=== PATIENT | female | born 1945 | race Two or more races ===

== ENCOUNTER 2016-10-10 23:46 | Emergency (ER) | payer MEDICAID ==
[~2016-10-10] VITALS: Ht 152.4 cm; Wt 61.2 kg
[2016-10-11] MEDS ORDERED: FAMOTIDINE (10MG/ML) 2ML VL IV ONE (00:15)
[2016-10-11] MEDS ORDERED: diphenhdrAMINE HCL 50 MG/1 ML VL IV ONE (00:15)
[2016-10-11] MEDS ORDERED: methylPREDNISolone SOD SUCC 125 MG/2 ML VL IV ONE (00:15)
[2016-10-11 02:46] VITALS: BP 150/77
== END 2016-10-11 04:14 | disposition home or self-care (01) ==
LOC: ER 23:48
DX: T78.3XXA Angioneurotic edema, initial encounter (principal); I10 Essential (primary) hypertension; Y93.89 Activity, other specified; Y99.8 Other external cause status; Y92.89 Other specified places as the place of occurrence of the external cause
CPT/HCPCS: 96374; 96375; 99284; J1200; J2930; J3490

== ENCOUNTER 2016-12-20 09:36 | Inpatient (IN) | payer MEDICAID ==
[2016-12-20] VITALS (9 sets, daily range): BP systolic 102–182; BP diastolic 57–100
[~2016-12-20] VITALS: Ht 154.9 cm; Wt 65.6 kg
[2016-12-20] MEDS ORDERED: SUCCINYLCHOLINE CHLORIDE 20 MG/ML 10ML VIAL IV ONE ×2 (09:39→11:00)
[2016-12-20] MEDS ORDERED: ETOMIDATE (2MG/ML) 20ML VIAL IV ONE ×2 (09:39→11:00)
[2016-12-20] MEDS ORDERED: MIDAZOLAM DRIP 50 mg/50mL 50 ML IV ONE ×3 (09:41→16:56)
[2016-12-20] MEDS ORDERED: SODIUM CHLORIDE 0.9% 1,000 ML IV ONE (09:50)
[2016-12-20] MEDS: MIDAZOLAM DRIP 50 mg/50mL 50 ML IV SCH (09:50)
[2016-12-20] MEDS ORDERED: diphenhdrAMINE HCL 50 MG/1 ML VL IV ONE (10:00)
[2016-12-20] MEDS ORDERED: methylPREDNISolone SOD SUCC 125 MG/2 ML VL IV ONE (10:00)
[2016-12-20] MEDS ORDERED: EPINEPHrine HCL 1 MG/1 ML AMP SC ONE (10:00)
[2016-12-20 10:57] LABS: Urine Bilirubin Negative (Negative); Urine Blood 2+ /uL (Negative); Urine Color Yellow (Yellow); Urine Glucose TRACE mg/dL (Normal); Urine Hyaline Cast FEW /lpf (0 - 2); Urine Ketone Negative (Negative); Urine Mucus FEW (None Seen); Urine Nitrite Negative (Negative); Urine RBC 7 /hpf (0 - 4); Urine Squamous Epithelial Cell FEW /hpf (<5); Urine Urobilinogen Normal (Negative)
[2016-12-20 11:11] LABS: Basophils # (auto) 0.1 uL; Basophils % (auto) 1.1 % (0.0-2.0); Eosinophils # (auto) 0.2 uL; Eosinophils % (auto) 2.9 % (0.0-7.0); Hematocrit 45.2 % (36.0-46.0); Hemoglobin 15.4 g/dL (12.2-16.2); INR 0.95 (0.9-1.15); Lymphocytes # (auto) 2.1 uL; Lymphocytes % (auto) 30.8 % (10.0-50.0); Mean Corpuscular Hemoglobin 30.4 pg (28.0-32.0); Mean Corpuscular Volume 89.6 fL (80.0-100.0); Mean Platelet Volume 7.4 fL (6.9-10.8); Monocytes # (auto) 0.4 uL; Monocytes % (auto) 5.9 % (0.0-12.0); Neutrophils # (auto) 4.1 uL; Neutrophils % (auto) 59.3 % (37.0-80.0); Nucleated Red Blood Cells % 0.1 %; Partial Thromboplastin Time 28.9 sec (22.64-33.71); Platelet Count (auto) 358 10^3/uL (140-450); Prothrombin Time 10.4 sec (9.37-12.3); Red Cell Distribution Width 13.8 % (11.8-14.3); White Blood Cell 6.9 10^3/uL (4.4-10.8)
[2016-12-20 11:11] LABS: Allen Test Yes; Base Excess -3.1 mmol/L (-2.0-2.0); Blood 02Sat 97.3 % (96-100); Blood COHb 0.5 % (0.5-1.5); Blood MetHb 0.3 % (0.0-1.5); HCO3 21.7 mmol/L (22-26.0); HHb 2.7 % (0.0-5.0); MODE VENT - A/C; O2Hb 96.5 % (94.0-97.0); PCO2 38.1 mmHg (35.0-45.0); PCO2(T) 38.1 mmHg (35.0-45.0); PO2 106.1 mmHg (80.0-100.0); PO2(T) 106.1 mmHg (80.0-100.0); Sample Type Arterial; pH 7.373 (7.350-7.450)
[2016-12-20] MEDS ORDERED: PROPOFOL 100 ML IV SCH (11:12)
[2016-12-20 11:17] LABS: Albumin 3.6 g/dL (3.4-5.0); Alkaline Phosphatase 120 U/L (45-117); Anion Gap 8 (5-15); Aspartate Aminotransferase 34 U/L (15-37); BUN/Creatinine Ratio 14.9; Bilirubin, Total 0.6 mg/dL (0.2-1.0); Blood Urea Nitrogen 10 mg/dL (7-18); Calcium 9.3 mg/dL (8.5-10.1); Carbon Dioxide 21 mmol/L (21-32); Chloride 104 mmol/L (98-107); GFR African American 112 mL/min; GFR Non-African American 93 mL/min; Glucose 206 mg/dL (74-106); Potassium 4.9 mmol/L (3.5-5.1); Sodium 133 mmol/L (136-145); Total Protein 8.7 g/dL (6.4-8.2)
[2016-12-20] MEDS ORDERED: DEXTROSE (50%) 50ML SYRG IV PRN (15:00)
[2016-12-20] MEDS ORDERED: MORPHINE SULF INJ 2 MG/ML SYRINGE 1ML IV PRN (15:00)
[2016-12-20] MEDS ORDERED: LABETALOL HCL 5 MG/ML 4ML SYRINGE IV PRN (15:00)
[2016-12-20] MEDS ORDERED: ONDANSETRON HCL 4 MG/2 ML VIAL IV PRN (15:00)
[2016-12-20] MEDS ORDERED: CYAN1TAB14 PO (15:11)
[2016-12-20] MEDS ORDERED: [UNRECOGNIZED DRUG - CODE] EX (15:11)
[2016-12-20] MEDS ORDERED: OMEGCAP28 OR (15:11)
[2016-12-20] MEDS ORDERED: GEMF600T3 PO (15:11)
[2016-12-20] MEDS ORDERED: METF-370 PO (15:11)
[2016-12-20] MEDS: PROPOFOL 100 ML IV SCH (15:13)
[2016-12-20] MEDS ORDERED: GEMFIBROZIL 600 MG TAB PO ONE (15:15)
[2016-12-20] MEDS ORDERED: methylPREDNISolone SOD SUCC 125 MG/2 ML VL IM ONE (15:15)
[2016-12-20] MEDS ORDERED: diphenhdrAMINE HCL 50 MG/1 ML VL IV PRN (15:30)
[2016-12-20] MEDS ORDERED: ENOXAPARIN SOD 40 MG/0.4 ML SYRINGE SC ONE (16:15)
[2016-12-20] MEDS: SODIUM CHLORIDE 0.9% 1,000 ML IV SCH (17:05)
[2016-12-20] MEDS: ACCU-CHEK COMFORT CURVE STRIP VI SCH ×2 (17:05→22:17)
[2016-12-20] MEDS: InsuLIN REG 1unit/0.01ml Soln (100units/ml) SC SCH ×2 (18:00→22:21)
[2016-12-20] MEDS: diphenhdrAMINE HCL 50 MG/1 ML VL IV SCH (18:00)
[2016-12-20] MEDS ORDERED: methylPREDNISolone SOD SUCC 125 MG/2 ML VL IV SCH (22:00)
[2016-12-20] MEDS: methylPREDNISolone SOD SUCC 125 MG/2 ML VL IV SCH (22:17)
[2016-12-20] MEDS: FAMOTIDINE (10MG/ML) 2ML VL IV SCH (22:17)
[2016-12-21] VITALS (87 sets, daily range): BP systolic 103–162; BP diastolic 52–82
[2016-12-21] MEDS: diphenhdrAMINE HCL 50 MG/1 ML VL IV SCH ×5 (00:07→23:58)
[2016-12-21] MEDS: SODIUM CHLORIDE 0.9% 1,000 ML IV SCH ×3 (02:33→15:23)
[2016-12-21] MEDS: PROPOFOL 100 ML IV SCH (03:10)
[2016-12-21 04:32] LABS: Basophils # (auto) 0 uL; Basophils % (auto) 0.4 % (0.0-2.0); Eosinophils # (auto) 0 uL; Eosinophils % (auto) 0.1 % (0.0-7.0); Hemoglobin 12.2 g/dL (12.2-16.2); Lymphocytes # (auto) 0.6 uL; Lymphocytes % (auto) 10.2 % (10.0-50.0); Mean Corpuscular Hemoglobin 29.9 pg (28.0-32.0); Mean Corpuscular Hgb Conc. 33.8 g/dL (32.0-36.0); Mean Corpuscular Volume 88.5 fL (80.0-100.0); Mean Platelet Volume 6.9 fL (6.9-10.8); Monocytes # (auto) 0.1 uL; Monocytes % (auto) 1.6 % (0.0-12.0); Neutrophils # (auto) 5.4 uL; Neutrophils % (auto) 87.7 % (37.0-80.0); Platelet Count (auto) 265 10^3/uL (140-450); White Blood Cell 6.2 10^3/uL (4.4-10.8)
[2016-12-21] MEDS: MIDAZOLAM DRIP 50 mg/50mL 50 ML IV SCH ×3 (04:35→19:45)
[2016-12-21 04:53] LABS: BUN/Creatinine Ratio 28.6; Calcium 8.5 mg/dL (8.5-10.1); Potassium 3.9 mmol/L (3.5-5.1)
[2016-12-21] MEDS: methylPREDNISolone SOD SUCC 125 MG/2 ML VL IV SCH ×2 (06:15→11:54)
[2016-12-21] MEDS: ACCU-CHEK COMFORT CURVE STRIP VI SCH ×4 (06:35→21:56)
[2016-12-21] MEDS: InsuLIN REG 1unit/0.01ml Soln (100units/ml) SC SCH ×4 (06:35→21:56)
[2016-12-21 07:41] LABS: Allen Test Yes; Base Excess -3.5 mmol/L (-2.0-2.0); Blood COHb 0.7 % (0.5-1.5); Blood MetHb 0.1 % (0.0-1.5); HCO3 19.7 mmol/L (22-26.0); MODE VENT - A/C; O2Hb 93.2 % (94.0-97.0); PCO2 30.2 mmHg (35.0-45.0); PCO2(T) 30.2 mmHg (35.0-45.0); PO2 70.5 mmHg (80.0-100.0); PO2(T) 70.5 mmHg (80.0-100.0); Sample Type Arterial; pH 7.432 (7.350-7.450)
[2016-12-21] MEDS ORDERED: ENOXAPARIN SOD 40 MG/0.4 ML SYRINGE SC SCH (10:00)
[2016-12-21] MEDS ORDERED: GEMFIBROZIL 600 MG TAB PO SCH (10:00)
[2016-12-21] MEDS: FAMOTIDINE (10MG/ML) 2ML VL IV SCH ×2 (10:42→21:56)
[2016-12-21] MEDS ORDERED: FUROSEMIDE 20 MG/2 ML VIAL IV ONE (15:00)
[2016-12-21] MEDS: methylPREDNISolone SOD SUCC 40 MG/ML VL IV SCH (21:56)
[2016-12-21] MEDS ORDERED: methylPREDNISolone SOD SUCC 125 MG/2 ML VL IV SCH (22:00)
[2016-12-22] VITALS (82 sets, daily range): BP systolic 126–177; BP diastolic 55–98
[2016-12-22] MEDS: PROPOFOL 100 ML IV SCH (02:00)
[2016-12-22 03:53] LABS: Basophils # (auto) 0 uL; Eosinophils # (auto) 0 uL; Hematocrit 34.9 % (36.0-46.0); Lymphocytes # (auto) 0.6 uL; Lymphocytes % (auto) 6.8 % (10.0-50.0); Mean Corpuscular Hemoglobin 30.4 pg (28.0-32.0); Mean Corpuscular Hgb Conc. 34.4 g/dL (32.0-36.0); Mean Corpuscular Volume 88.5 fL (80.0-100.0); Monocytes # (auto) 0.3 uL; Monocytes % (auto) 3.3 % (0.0-12.0); Neutrophils # (auto) 8.1 uL; Neutrophils % (auto) 89.9 % (37.0-80.0); Platelet Count (auto) 268 10^3/uL (140-450); Red Cell Distribution Width 13.9 % (11.8-14.3)
[2016-12-22 04:01] LABS: BUN/Creatinine Ratio 35.7; Calcium 8.3 mg/dL (8.5-10.1)
[2016-12-22] MEDS: SODIUM CHLORIDE 0.9% 1,000 ML IV SCH ×2 (05:35→18:55)
[2016-12-22] MEDS: methylPREDNISolone SOD SUCC 40 MG/ML VL IV SCH ×2 (06:10→22:11)
[2016-12-22] MEDS: diphenhdrAMINE HCL 50 MG/1 ML VL IV SCH ×3 (06:10→17:56)
[2016-12-22] MEDS: InsuLIN REG 1unit/0.01ml Soln (100units/ml) SC SCH ×4 (06:11→22:19)
[2016-12-22] MEDS: ACCU-CHEK COMFORT CURVE STRIP VI SCH ×4 (06:11→22:11)
[2016-12-22 07:32] LABS: Allen Test Yes; Blood 02Sat 94.5 % (96-100); Blood COHb 0.3 % (0.5-1.5); Blood MetHb 0.2 % (0.0-1.5); HCO3 21.9 mmol/L (22-26.0); HHb 5.5 % (0.0-5.0); MODE VENT - A/C; PCO2 31.2 mmHg (35.0-45.0); PCO2(T) 31.2 mmHg (35.0-45.0); PO2 74.1 mmHg (80.0-100.0); PO2(T) 74.1 mmHg (80.0-100.0); Sample Type Arterial; pH 7.464 (7.350-7.450)
[2016-12-22 09:07] LABS: Allen Test Yes; Base Excess -0.4 mmol/L (-2.0-2.0); Blood 02Sat 93.4 % (96-100); Blood COHb 0.6 % (0.5-1.5); Blood MetHb 0.2 % (0.0-1.5); HCO3 21.8 mmol/L (22-26.0); HHb 6.5 % (0.0-5.0); MODE VENT - CPAP; O2Hb 92.7 % (94.0-97.0); PCO2 29.1 mmHg (35.0-45.0); PCO2(T) 29.1 mmHg (35.0-45.0); PO2 67.5 mmHg (80.0-100.0); PO2(T) 67.5 mmHg (80.0-100.0); Pressure Support 8; Sample Type Arterial; pH 7.493 (7.350-7.450)
[2016-12-22] MEDS: POTASSIUM CHL 10% (20 MEQ/15ML) 15ml ORAL SOLN GT SCH (09:59)
[2016-12-22] MEDS: FAMOTIDINE (10MG/ML) 2ML VL IV SCH ×2 (09:59→22:10)
[2016-12-22] MEDS ORDERED: FUROSEMIDE 40 MG/4 ML VIAL ONE (11:25)
[2016-12-22] MEDS ORDERED: POTASSIUM CHL 10% (20 MEQ/15ML) 15ml ORAL SOLN GT ONE (11:30)
[2016-12-22] MEDS ORDERED: FUROSEMIDE 40 MG/4 ML VIAL IV ONE (11:30)
[2016-12-22] MEDS ORDERED: LABETALOL HCL 5 MG/ML ML 20ML VIAL IV ONE (17:27)
[2016-12-23] VITALS (29 sets, daily range): BP systolic 137–175; BP diastolic 53–107
[2016-12-23] MEDS: diphenhdrAMINE HCL 50 MG/1 ML VL IV SCH ×3 (00:06→11:42)
[2016-12-23 04:03] LABS: Basophils # (auto) 0 uL; Basophils % (auto) 0.1 % (0.0-2.0); Eosinophils # (auto) 0 uL; Eosinophils % (auto) 0.1 % (0.0-7.0); Hematocrit 38.2 % (36.0-46.0); Hemoglobin 13.1 g/dL (12.2-16.2); Lymphocytes # (auto) 0.6 uL; Lymphocytes % (auto) 8.2 % (10.0-50.0); Mean Corpuscular Hemoglobin 30.2 pg (28.0-32.0); Mean Corpuscular Hgb Conc. 34.2 g/dL (32.0-36.0); Mean Corpuscular Volume 88.2 fL (80.0-100.0); Mean Platelet Volume 6.9 fL (6.9-10.8); Monocytes # (auto) 0.1 uL; Monocytes % (auto) 1.8 % (0.0-12.0); Neutrophils # (auto) 7.1 uL; Neutrophils % (auto) 89.8 % (37.0-80.0); Nucleated Red Blood Cells % 0.1 %; Platelet Count (auto) 276 10^3/uL (140-450); Red Cell Distribution Width 13.6 % (11.8-14.3); White Blood Cell 7.9 10^3/uL (4.4-10.8)
[2016-12-23 04:36] LABS: BUN/Creatinine Ratio 27.8; Calcium 8.3 mg/dL (8.5-10.1); Magnesium 2.5 mg/dL (1.6-2.6)
[2016-12-23] MEDS: SODIUM CHLORIDE 0.9% 1,000 ML IV SCH (04:43)
[2016-12-23] MEDS: InsuLIN REG 1unit/0.01ml Soln (100units/ml) SC SCH ×4 (05:53→22:12)
[2016-12-23] MEDS: ACCU-CHEK COMFORT CURVE STRIP VI SCH ×4 (05:53→22:13)
[2016-12-23] MEDS: POTASSIUM CHL 10% (20 MEQ/15ML) 15ml ORAL SOLN GT SCH (09:53)
[2016-12-23] MEDS: FAMOTIDINE (10MG/ML) 2ML VL IV SCH (09:53)
[2016-12-23] MEDS: methylPREDNISolone SOD SUCC 40 MG/ML VL IV SCH (09:54)
[2016-12-23] MEDS: MIDAZOLAM DRIP 50 mg/50mL 50 ML IV SCH (10:54)
[2016-12-23] MEDS ORDERED: ENAL2.5T PO (12:54)
[2016-12-23] MEDS ORDERED: amLODIPine BESYLATE 5 MG TAB PO ONE (14:45)
[2016-12-23] MEDS ORDERED: LEVOFLOXACIN 500 MG TAB PO ONE (14:45)
[2016-12-23] MEDS: FAMOTIDINE 20 MG TAB PO SCH (22:22)
[2016-12-24 05:00] VITALS: BP 145/72
[2016-12-24] MEDS: InsuLIN REG 1unit/0.01ml Soln (100units/ml) SC SCH ×2 (06:47→11:48)
[2016-12-24] MEDS: ACCU-CHEK COMFORT CURVE STRIP VI SCH ×2 (07:00→11:48)
[2016-12-24 09:00] VITALS: BP 128/53
[2016-12-24] MEDS: FAMOTIDINE 20 MG TAB PO SCH (09:42)
[2016-12-24] MEDS ORDERED: amLODIPine BESYLATE 5 MG TAB PO SCH (10:00)
[2016-12-24] MEDS ORDERED: LEVOFLOXACIN 500 MG TAB PO SCH (10:00)
[2016-12-24] MEDS ORDERED: predniSONE 20 MG TAB PO SCH (10:00)
[2016-12-24 13:00] VITALS: BP 128/53
== END 2016-12-24 13:56 | disposition home or self-care (01) | DRG 133 ==
LOC: ER 09:36 → OVERFLOW 09:37 → ICU WEST 12-21 04:45 → WEST WING 12-23 15:42
PROVIDERS: ADMIT Internal Medicine; ATTEND Internal Medicine
PROC: 5A1945Z Respiratory Ventilation, 24-96 Consecutive Hours (ICD-10-PCS; principal; 2016-12-20)
PROC: 0BH17EZ Insertion of Endotracheal Airway into Trachea, Via Natural or Artificial Opening (ICD-10-PCS; 2016-12-20)
PROC: 30233L1 Transfusion of Nonautologous Fresh Plasma into Peripheral Vein, Percutaneous Approach (ICD-10-PCS; 2016-12-20)
PROC: 30233K1 Transfusion of Nonautologous Frozen Plasma into Peripheral Vein, Percutaneous Approach (ICD-10-PCS; 2016-12-20)
DX: J96.00 Acute respiratory failure, unspecified whether with hypoxia or hypercapnia (principal); J18.9 Pneumonia, unspecified organism; I10 Essential (primary) hypertension; E87.1 Hypo-osmolality and hyponatremia; T78.3XXA Angioneurotic edema, initial encounter; E11.9 Type 2 diabetes mellitus without complications; E78.00 Pure hypercholesterolemia, unspecified; I70.0 Atherosclerosis of aorta; B96.3 Hemophilus influenzae [H. influenzae] as the cause of diseases classified elsewhere; E78.5 Hyperlipidemia, unspecified; Z79.899 Other long term (current) drug therapy; Z79.84 Long term (current) use of oral hypoglycemic drugs; Y92.89 Other specified places as the place of occurrence of the external cause
CPT/HCPCS: 31500; 36415; 36600; 71010; 80048; 80053; 81001; 82805; 82962; 83036; 83735; 84443; 84484; 85025; 85610; 85730; 86850; 86900; 86901; 87070; 87077; 87081; 87205; 92610; 93005; 94002; 94003; 96361; 96374; 96375; 97163; 99291; G0378; J0171; J0330; J1815; J2250; J2704; J3490